=== PATIENT | male | born 1965 ===

== ENCOUNTER 2023-07-26 10:26 | Emergency (ER) | payer SELFPAY ==
[~2023-07-26] VITALS: Ht 175.3 cm; Wt 77.1 kg
[2023-07-26 11:57] VITALS: BP 141/85
[2023-07-26] MEDS ORDERED: Ultram50 MG PO (15:03)
== END 2023-07-26 15:07 | disposition home or self-care (01) ==
LOC: ER 10:26
DX: M54.50 Low back pain, unspecified (principal); S51.012A Laceration without foreign body of left elbow, initial encounter; Z23 Encounter for immunization; W01.0XXA Fall on same level from slipping, tripping and stumbling without subsequent striking against object, initial encounter
CPT/HCPCS: 12002; 72100; 90471; 90715; 96372-59; 99283-25; J1885